=== PATIENT | female | born 1975 | race Caucasian/White ===

== ENCOUNTER 2017-03-29 20:45 | Outpatient (CLI) | payer OTHER | END 2017-03-29 20:46 | disposition critical access hospital (66) | LOC: EMS 20:45 | PROVIDERS: ATTEND Surgery | DX: R46.89 Other symptoms and signs involving appearance and behavior (principal) | CPT/HCPCS: A0425; A0429 ==

== ENCOUNTER 2017-03-29 21:04 | Emergency (ER) | payer OTHER ==
[2017-03-29 21:30] LABS: HCT - HEMATOCRIT 33.3 % (37.0-47.0); HGB - HEMOGLOBIN 10.4 g/dL (12.0-16.0); MEAN CORPUSCULAR HGB CONC 31.3 g/dL (32.0-36.0); MEAN CORPUSCULAR VOLUME 67.3 fL (81.0-99.0); MEAN PLATELET VOLUME 7.3 fL (7.9-10.8); RED BLOOD COUNT 4.94 10^6/uL (4.20-5.40); RED CELL DISTRIBUTION WIDTH 16.1 % (12.0-15.0); WHITE BLOOD COUNT 5.3 x10^3/uL (4.8-10.8)
[2017-03-29 21:44] LABS: ALBUMIN/GLOBULIN RATIO 1.8 (1.0-2.2); BILIRUBIN,TOTAL 1.4 mg/dL (0.2-1.0); BUN - BLOOD UREA NITROGEN 16 mg/dL (6-20); CALCIUM 9.2 mg/dL (8.5-10.3); CARBON DIOXIDE - CO2 26 mmol/L (21-32); CHLORIDE 100 mmol/L (101-111); CREATININE 0.7 mg/dL (0.4-1.0); GFR - MDRD 92 (>89); GLUCOSE 86 mg/dL (70-100); LIPASE 27 U/L (22-51); POTASSIUM 3.6 mmol/L (3.5-5.0); SALICYLATE < 6.0 mg/dL; SODIUM 134 mmol/L (135-145); TOTAL PROTEIN 7.1 g/dL (6.7-8.2)
[2017-03-29 21:45] LABS: BILIRUBIN,URINE NEGATIVE (NEGATIVE)
[2017-03-29 21:50] LABS: ACETAMINOPHEN < 10 ug/mL (10-30)
--- NOTE | 2017-03-29 23:59 | ED Physician Documentation ---
PD HPI MHE - Stated complaint Stated Complaint: MHE - Chief complaint Chief Complaint: MHE - History obtained from History obtained from: Patient - History of Present Illness Primary symptom: Psychosis, Anxiety Contributing factors: Family Similar symptoms before: Diagnosis (PTSD; ADD; Anxiety Disorder) - Additional information Additional information: The patient is a 42-year-old female who arrives via ambulance after her daughter called 911. Her daughter, who lives in [place], was talking to the patient by telephone, and became concerned about her safety when the patient described feeling overwhelmed and getting in verbal confrontations and making threats to her 15-year-old son. The patient admits to feeling overwhelmed since her is been overseas as an sheet metal contractor in [facility]. Her 15-year-old son is challenging for her, and "pushes the barriers." She also describes having insomnia. She is also concerned about parasites which she thinks have infested her home and her body. She reports seeing tapeworms in her stool. Her daughter states that the patient has had inspectors in the home to look for parasites. She sees a therapist regularly for ADD and PTSD. She has a remote psychiatric hospitalization in 2000 after a suicide attempt. Review of Systems Constitutional: denies: Fever, Weight Loss Ears: denies: Tinnitus/ringing Nose: denies: Congestion Throat: denies: Sore throat Cardiac: denies: Chest pain / pressure Respiratory: denies: Dyspnea, Cough GI: denies: Abdominal Pain, Nausea, Vomiting : denies: Dysuria Skin: denies: Rash Musculoskeletal: denies: Neck pain, Back pain Neurologic: denies: Focal weakness, Numbness, Headache Psychiatric: reports: Delusions (Obsessively concerned about parasites.), Anxiety, Insomnia. 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, Ovarian cysts : None HEENT: None Psych: Depression, Anxiety, Panic attacks, ADD/ADHD, Post traumatic stress disorder, Obsessive compulsive disorder, Eating disorder Musculoskeletal: Osteoarthritis, Fatigue Derm: None - Past Surgical History Past Surgical History: Yes General: Cholecystectomy, Appendectomy /BOXING MACHINE 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: section HEENT: Tonsil/Adenoidectomy - Present Medications Home Medications: Ambulatory Orders Medication Instructions Recorded Confirmed Dextroamphetamine/Amphetamine 60 mg PO DAILY 11/11/12 03/29/17 [Adderall 20 mg Tablet] - Allergies Allergies/Adverse Reactions: Allergies Allergy/AdvReac Type Severity Reaction Status Date / Time Penicillins Allergy Intermediate Rash Verified 05/01/16 10:54 - Social History Does the pt smoke?: No Smoking Status: Never smoker Does the pt drink ETOH?: No Does the pt have substance abuse?: Yes - Immunizations Immunizations are current?: No - POLST Patient has POLST: No PD ED PE NORMAL - Vitals Vital signs reviewed: Yes (normal) - General General: Alert and oriented X 3, Well developed/nourished - HEENT HEENT: Atraumatic, PERRL, EOMI, Pharynx benign, Other (Scattered open sores on her face consistent with picking.) - Neck Neck: Supple, no meningeal sign, No adenopathy - Cardiac Cardiac: RRR, No murmur - Respiratory Respiratory: No respiratory distress, Clear bilaterally - Abdomen Abdomen: Soft, Non tender - Back Back: No CVA TTP - Derm Derm: No rash - Extremities Extremities: No tenderness to palpate, Normal ROM s pain - Neuro Neuro: Alert and oriented X 3, No motor deficit, No sensory deficit, Normal speech PD ED PE EXPANDED - Psych Psych: Depressed, Anxious, Delusions ([place] obsessed with the possibility of parasites.). No: Suicidal, Homicidal Results - Vitals Vitals: Oxygen O2 Source Room air - Labs Labs: Microbiology 03/29/17 22:10 Campylobacter Antigen Assay - Final Stool Stool Culture - Final NO SALMONELLA, SHIGELLA, E. COLI 0157, AEROMONAS, EDWARDSIELLA, PLESIOMONAS, YERSINIA, OR VIBRIO ISOLATED. NO SHIGA TOXIN 1 OR 2 DETECTED. Laboratory Tests 03/29/17 03/29/17 03/29/17 21:15 21:25 21:25 WBC 5.3 RBC 4.94 Hgb 10.4 L Hct 33.3 L MCV 67.3 L MCH 21.0 L MCHC 31.3 L RDW 16.1 H Plt Count 231 MPV 7.3 L Sodium 134 L Potassium 3.6 Chloride 100 L Carbon Dioxide 26 Anion Gap 8.0 BUN 16 Creatinine 0.7 Estimated GFR (MDRD) 92 Glucose 86 Calcium 9.2 Total Bilirubin 1.4 H AST 19 ALT 17 Alkaline Phosphatase 36 L Total Protein 7.1 Albumin 4.6 Globulin 2.5 Albumin/Globulin Ratio 1.8 Lipase 27 Urine Color YELLOW Urine Clarity CLEAR Urine pH 6.0 Ur Specific [place] 1.025 Urine Protein NEGATIVE Urine Glucose (UA) NEGATIVE Urine Ketones NEGATIVE Urine Occult Blood NEGATIVE Urine Nitrite NEGATIVE Urine Bilirubin NEGATIVE Urine Urobilinogen 0.2 (NORMAL) Ur Leukocyte Esterase NEGATIVE Salicylates < 6.0 Urine Opiates Screen NEGATIVE Ur Oxycodone Screen NEGATIVE Urine Methadone Screen NEGATIVE Ur Propoxyphene Screen NEGATIVE Acetaminophen < 10 L Ur Barbiturates Screen NEGATIVE Ur Tricyclics Screen NEGATIVE Ur Phencyclidine Scrn NEGATIVE Ur Amphetamine Screen POSITIVE H U Methamphetamines Scrn NEGATIVE U Benzodiazepines Scrn NEGATIVE Urine Cocaine Screen NEGATIVE U Cannabinoids Screen NEGATIVE Ethyl Alcohol < 5.0 PD MEDICAL DECISION MAKING - ED course Complexity details: reviewed results, re-evaluated patient, considered differential, d/w patient, d/w family ED course: The patient's presentation is significant for exacerbation of anxiety with a delusional component. There is no clinical evidence to suggest significant risk of harm to herself or to others. In telephone discussion with the patient' s daughter I learned that she has been overly obsessed with parasites for months if not years. I suspect her sleep deprivation is exacerbating her symptoms. CBC, chemistry panel, and urinalysis are unremarkable. Urine tox screen is positive for amphetamines, consistent with prescription Adderall. A stool sample was collected and sent to the lab for evaluation. The patient was observed in the emergency department for several hours, during which time she managed to fall asleep. She felt much better rested after a long nap. She has an appointment scheduled with her therapist in 2 days. I discussed with her the importance of follow-up, as well as potentially worrisome signs or symptoms that should prompt reevaluation in the emergency department. I contacted her daughter again with regard to discharge. No other concerns were raised. Departure - Departure Disposition: 01 Home, Self Care Clinical Impression: Affective psychosis, Anxiety Condition: Stable Instructions: ED Stress React Follow-Up: HERMANN Brown [Provider Group] Comments: Continue your currently prescribed medications. Follow up with your psychiatrist in 2 days as scheduled. Minimize stimulant drinks such as coffee, alok, or alcohol. Return to the emergency department if you develop increasing anxiety, or otherwise worsening symptoms. Discharge Date/Time: 03/30/17 00:02
[2017-03-30 00:03] VITALS: BP 111/63
== END 2017-03-30 00:02 | disposition home or self-care (01) ==
LOC: EDUNIT# → ED 21:04
DX: F39 Unspecified mood [affective] disorder (principal); F41.9 Anxiety disorder, unspecified; F43.10 Post-traumatic stress disorder, unspecified
CPT/HCPCS: 36415; 80053; 80306; 80307; 80320; 80329; 81003; 83690; 87045; 87046; 99283

== ENCOUNTER 2018-10-14 16:36 | Emergency (ER) | payer OTHER ==
[2018-10-14 17:37] LABS: BASOPHILS % (AUTO) 0.9 %; EOSINOPHILS % (AUTO) 0.3 %; HGB - HEMOGLOBIN 10.4 g/dL (12.0-16.0); LYMPHOCYTES # (AUTO) 1.6 10^3/uL (1.5-3.5); LYMPHOCYTES % (AUTO) 28.6 %; MEAN CORPUSCULAR HEMOGLOBIN 21.8 pg (27.0-31.0); MEAN CORPUSCULAR VOLUME 70.4 fL (81.0-99.0); MEAN PLATELET VOLUME 7.9 fL (7.9-10.8); MONOCYTES # (AUTO) 0.4 10^3/uL (0.0-1.0); MONOCYTES % (AUTO) 6.7 %; NEUTROPHILS # (AUTO) 3.6 10^3/uL (1.5-6.6); NEUTROPHILS % (AUTO) 63.5 %; PLT - PLATELET COUNT 247 10^3/uL (130-450); RED BLOOD COUNT 4.75 10^6/uL (4.20-5.40); RED CELL DISTRIBUTION WIDTH 15.9 % (12.0-15.0); WHITE BLOOD COUNT 5.7 x10^3/uL (4.8-10.8)
[2018-10-14 17:39] LABS: BILIRUBIN,URINE NEGATIVE (NEGATIVE); GLUCOSE, URINE (UA) NEGATIVE (NEGATIVE); KETONES,URINE (UA) NEGATIVE (NEGATIVE); LEUKOCYTE ESTERASE, URINE NEGATIVE (NEGATIVE); NITRITE,URINE NEGATIVE (NEGATIVE); OCCULT BLOOD,URINE NEGATIVE (NEGATIVE); PROTEIN,URINE NEGATIVE (NEGATIVE); UROBILINOGEN,URINE 0.2 (NORMAL) E.U./dL (NORMAL)
[2018-10-14 17:42] LABS: CLARITY,URINE CLEAR (CLEAR); HCG UR QUAL NEGATIVE
[2018-10-14 17:46] LABS: ALBUMIN 4.1 g/dL (3.2-5.5); ALBUMIN/GLOBULIN RATIO 1.6 (1.0-2.2); BILIRUBIN,TOTAL 1.4 mg/dL (0.2-1.0); CALCIUM 8.8 mg/dL (8.5-10.3); CREATININE 0.6 mg/dL (0.4-1.0); TOTAL PROTEIN 6.7 g/dL (6.7-8.2)
[2018-10-14] MEDS ORDERED: KETOROLAC 60 MG/2 ML VIAL IM STA (20:07)
[2018-10-14] MEDS ORDERED: DEXAMETHASONE 10 MG/ML VIAL PO STA (20:07)
[2018-10-14] MEDS ORDERED: CHERRY SYRUP 10 ML UDC PO ONE (20:07)
--- NOTE | 2018-10-14 20:12 | ED Physician Documentation ---
History of Present Illness - Stated complaint Stated Complaint: LRQ /FLU SYMPTOMS - Chief complaint Chief Complaint: Abd Pain - History obtained from History obtained from: Patient - History of Present Illness Pain level max: 8 Pain level now: 8 Improved by: nothing Worsened by: nothing - Additonal information Additional information: 43-year-old female with pelvic pain for the past 2 years, worsening over the past several weeks. Became suddenly worse today. LMP was 2 weeks ago. She states she has had multiple work-ups with no cause found. No changes in sexual partners. Complains of white thick vaginal discharge. She also complains of a itchy rash over her entire body for the past several months. No cause found. Review of Systems Constitutional: denies: Fever, Chills Throat: denies: Sore throat Respiratory: denies: Cough GI: denies: Nausea, Vomiting : reports: Other (states no changes in sexual partners). 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, Ovarian cysts : None HEENT: None Psych: Depression, Anxiety, Panic attacks, ADD/ADHD, Post traumatic stress disorder, Obsessive compulsive disorder, Eating disorder Musculoskeletal: Osteoarthritis, Fatigue Derm: None - Past Surgical History Past Surgical History: Yes General: Cholecystectomy, Appendectomy /CARPENTER REPAIRER: section HEENT: Tonsil/Adenoidectomy - Present Medications Home Medications: Ambulatory Orders Medication Instructions Recorded Confirmed Dextroamphetamine/Amphetamine 60 mg PO DAILY 11/11/12 10/14/18 [Adderall 20 mg Tablet] Hydrocodone/Acetaminophen 1 - 2 each PO Q6H PRN #14 tablet 10/14/18 [Hydrocodon-Acetaminophen 5-325] Metronidazole [Flagyl] 500 mg PO BID #14 tablet 10/14/18 predniSONE [Prednisone] 40 mg PO DAILY #10 tablet 10/14/18 - Allergies Allergies/Adverse Reactions: Allergies Allergy/AdvReac Type Severity Reaction Status Date / Time Penicillins Allergy Intermediate Rash Verified 10/14/18 16:45 - Social History Does the pt smoke?: No Smoking Status: Never smoker Does the pt drink ETOH?: Yes Does the pt have substance abuse?: No - Immunizations Immunizations are current?: No - POLST Patient has POLST: No PD ED PE NORMAL - Vitals Vital signs reviewed: Yes - General General: Alert and oriented X 3, No acute distress - HEENT HEENT: Moist mucous membranes, Pharynx benign - Neck Neck: Supple, no meningeal sign - Cardiac Cardiac: RRR, No murmur, Strong equal pulses - Respiratory Respiratory: No respiratory distress, Clear bilaterally - Abdomen Abdomen: Soft, Non distended, Other (Tender to palpation right low pelvic. No peritoneal signs) - Female Female : Densitometer Reader present, Other (Normal external exam. There appears to be agitation to the cervix with mild swelling. Slight discharge. No lesions. No cervical motion tenderness or adnexal fullness.) - Back Back: No CVA TTP, No spinal TTP - Derm Derm: Warm and dry, Other (Few small scattered erythematous patches, approx imately 1 cm in diameter.) - Extremities Extremities: No edema, No calf tenderness / cord - Neuro Neuro: Alert and oriented X 3 - Psych Psych: Normal mood, Normal affect Results - Vitals Vitals: Vital Signs - 24 hr 10/14/18 10/14/18 16:43 22:18 Temperature 36.9 C 37 C Heart Rate 85 64 Respiratory 20 16 Rate Blood Pressure 133/87 H 127/86 H O2 Saturation 100 98 Oxygen O2 Source Room air - Labs Labs: Microbiology 10/14/18 21:50 MARILIA Preparation - Final Other - Vaginal 10/14/18 21:50 Wet Prep - Final Vaginal Laboratory Tests 10/14/18 10/14/18 10/14/18 16:55 17:25 17:25 WBC 5.7 RBC 4.75 Hgb 10.4 L Hct 33.4 L MCV 70.4 L MCH 21.8 L MCHC 31.0 L RDW 15.9 H Plt Count 247 MPV 7.9 Neut # (Auto) 3.6 Lymph # (Auto) 1.6 [place] # (Auto) 0.4 Eos # (Auto) 0.0 Baso # (Auto) 0.0 Absolute Nucleated RBC 0.01 Nucleated RBC % 0.2 Sodium 138 Potassium 4.0 Chloride 103 Carbon Dioxide 25 Anion Gap 10.0 BUN 15 Creatinine 0.6 Estimated GFR (MDRD) 109 Glucose 98 Calcium 8.8 Total Bilirubin 1.4 H AST 15 ALT 14 Alkaline Phosphatase 43 Total Protein 6.7 Albumin 4.1 Globulin 2.6 Albumin/Globulin Ratio 1.6 Lipase 23 Urine Color YELLOW Urine Clarity CLEAR Urine pH 5.0 Ur Specific [place] 1.025 Urine Protein NEGATIVE Urine Glucose (UA) NEGATIVE Urine Ketones NEGATIVE Urine Occult Blood NEGATIVE Urine Nitrite NEGATIVE Urine Bilirubin NEGATIVE Urine Urobilinogen 0.2 (NORMAL) Ur Leukocyte Esterase NEGATIVE Ur Microscopic Review NOT INDICATED Urine Culture Comments NOT INDICATED Urine HCG, Qual NEGATIVE - Rads (name of study) Pelvic ultrasound Radiology: Prelim report reviewed, EMP read contemporaneously, See rad report (Normal pelvic ultrasound) PD MEDICAL DECISION MAKING - ED course Complexity details: reviewed results, re-evaluated patient, considered differential, d/w patient ED course: 43-year-old female with pelvic pain of unclear etiology. This been ongoing for several years, no cause found. Clinically she appears to have a cervicitis, no STD risk factors however. The wet bigg had become dry by the time it reached the lab, therefore nothing was seen on the swab. We will not recollect this. Instead we will treat with metronidazole and see if this improves her symptoms. Recommend that she follow-up with gynecology for further exam. Gonorrhea and Chlamydia testing also sent. Unclear etiology of the rash. Will trial on a short course of steroids and have her follow-up with dermatology. Patient counseled regarding signs and symptoms for which I believe and urgent re- evaluation would be necessary. Patient with good understanding of and agreement to plan and is comfortable going home at this time This document was made in part using voice recognition software. While efforts are made to proofread this document, sound alike and grammatical errors may occur. Departure - Departure Disposition: 01 Home, Self Care Clinical Impression: Pelvic pain, Bacterial vaginitis, Cervicitis, Dermatitis Condition: Good Instructions: ED Pelvic Pain UKO, ED Vaginosis Bacterial Follow-Up: your,doctor in 1 week [Other] Prescriptions: Hydrocodone/Acetaminophen [Hydrocodon-Acetaminophen 5-325] 1 - 2 each PO Q6H PRN #14 tablet PRN Reason: pain Metronidazole [Flagyl] 500 mg PO BID #14 tablet predniSONE [Prednisone] 40 mg PO DAILY #10 tablet Comments: Return if you worsen. Take the medications until gone. Follow up with your doctor for further care. Do not drink alcohol or drive while on narcotic pain medicine. Note that many narcotic pain relievers also contain tylenol/acetaminophen. Please ensure that your total dose of acetaminophen from all sources does not exceed 3 grams (3000mg) per day. You may constipated on this medication, take a stool softener such as "Colace" twice a day while you are on it. Also recommend a lvzd-ldc-itpnotn laxative such as senna or MiraLAX any day that you do not have a bowel movement. If you received narcotic pain medication in the emergency department, do not drive or operate machinery for the next 24 hours. Discharge Date/Time: 10/14/18 22:31
--- NOTE | 2018-10-14 21:51 | Ultrasound Report ---
Reason: R pelvic pain Procedure Date: 10/14/2018 Accession Number: [id number] / [id number] Procedure: US - Pelvic w/Transvag+Doppler Comp CPT Code: FULL RESULT: EXAM: PELVIC ULTRASOUND EXAM DATE: 10/14/2018 09:03 PM. CLINICAL HISTORY: Right lower quadrant pain, status post appendectomy. COMPARISON: None. TECHNIQUE: Realtime transabdominal pelvic scan performed to identify the uterus and adnexa and as an overview of other pelvic structures, followed by transvaginal scan to provide greater detail of the uterus and adnexa, with static image documentation. FINDINGS: Uterus: 9 x 4.4 x 6 cm, volume 124.3 cc. Anteverted position. Normal overall size and echotexture. Masses: None. Endometrium: 14.8 mm. Normal. Cervix: Unremarkable. Right Ovary: 3.2 x 1.1 x 1.4 cm, volume 2.6 cc. Normal echotexture and blood flow. Left Ovary: 3.5 x 2 x 3.2 cm, volume 11.7 cc. Normal echotexture and blood flow. Free Fluid: None. Other: None. IMPRESSION: Normal pelvic ultrasound. RADIA
[2018-10-14 22:20] VITALS: BP 127/86
[2018-10-14] MEDS ORDERED: metroNIDAZOLE 250 MG TABLET PO STA (22:20)
== END 2018-10-14 22:31 | disposition home or self-care (01) ==
LOC: ED 16:36
DX: N72 Inflammatory disease of cervix uteri (principal); N76.0 Acute vaginitis; B96.89 Other specified bacterial agents as the cause of diseases classified elsewhere; R10.2 Pelvic and perineal pain; L30.9 Dermatitis, unspecified
CPT/HCPCS: 36415; 76830; 76856; 80053; 81003; 81025; 83690; 85025; 87210; 87220; 87491; 87591; 93975; 96372; 99283; 99284; A9270; 81001; 87086

== ENCOUNTER 2019-06-08 05:34 | Outpatient (CLI) | payer OTHER | END 2019-06-08 05:35 | disposition EMS.NT | LOC: EMS 05:34 | PROVIDERS: ATTEND Surgery | DX: R25.1 Tremor, unspecified (principal) ==

== ENCOUNTER 2019-11-23 13:53 | Emergency (ER) | payer OTHER ==
[2019-11-23] MEDS ORDERED: KETOROLAC 60 MG/2 ML VIAL IM STA (14:22)
[2019-11-23] MEDS ORDERED: PROMETHAZINE 25 MG/1 ML VIAL IM STA (14:23)
--- NOTE | 2019-11-23 14:26 | ED Physician Documentation ---
History of Present Illness - Stated complaint Stated Complaint: RODRIGUEZ/SORE THROAT - Chief complaint Chief Complaint: Neuro - History obtained from History obtained from: Patient - History of Present Illness Timing: Prior to arrival Pain level max: 8 Pain level now: 8 - Additonal information Additional information: 44-year-old female presents to the emergency department with chief complaint of headache for about 3 days. She reports a global cephalgia that is light sensitive. She feels that it is making her anxiety worse. She has tried extra strength Tylenol as well as [id number]-[id number] migraine remedies without relief. She states that she has developed a history of headaches over the last year and this is similar to others in the past. Typically sitting in a dark room will make her better. Headache was not sudden onset. She has had no fevers. This is not worst of life. She has no neck pain or nuchal rigidity. She also reports that she has been having right lower quadrant abdominal pain as well as right upper quadrant abdominal pain with some associated nausea. Occasionally she reports dysuria but not at present. She denies any fevers.Patient is also reporting that she has had a cough for the last week sometimes blood-tinged sputum. She also has associated sore throat. No lymphadenopathy in the neck and no tonsillar exudate. In the room patient is tearful and crying. States that her psychiatrist asked her to come to the emergency department for evaluation of the headache. Patient states that she would like to be tested for Lyme disease. She denies any rash joint pain. Review of Systems Constitutional: denies: Fever, Chills, Myalgias, Fatigue Eyes: reports: Photophobia. denies: Loss of vision, Decreased vision, Discharge, Irritation Ears: reports: Reviewed and negative Nose: reports: Congestion. denies: Rhinorrhea / runny nose Respiratory: reports: Cough, Hemoptysis. denies: Dyspnea, Wheezing GI: reports: Abdominal Pain, Nausea. denies: Abdominal Swelling, Vomiting, Constipation, Hematemesis : reports: Dysuria Skin: denies: Rash, Lesions Musculoskeletal: denies: Neck pain, Back pain, Joint pain, Extremity swelling Neurologic: reports: Headache. denies: Generalized weakness, Focal weakness, D ifficulty speaking, Near syncope, Syncope, Seizure, Confused, Altered mental status Psychiatric: reports: Depressed, Anxiety. 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, Ovarian cysts : None HEENT: None Psych: Depression, Anxiety, Panic attacks, ADD/ADHD, Post traumatic stress disorder, Obsessive compulsive disorder, Eating disorder Musculoskeletal: Osteoarthritis, Fatigue Derm: None - Past Surgical History Past Surgical History: Yes General: Cholecystectomy, Appendectomy /STEMHOLE BORER AND TOPPER: section HEENT: Tonsil/Adenoidectomy - Present Medications Home Medications: Ambulatory Orders Medication Instructions Recorded Confirmed Dextroamphetamine/Amphetamine 60 mg PO DAILY 11/11/12 11/23/19 [Adderall 20 mg Tablet] Ibuprofen [Ibu] 600 mg PO Q6H PRN #20 tablet 11/23/19 Multivitamin [Multiple Vitamins] 1 each PO DAILY 11/23/19 11/23/19 - Allergies Allergies/Adverse Reactions: Allergies Allergy/AdvReac Type Severity Reaction Status Date / Time Penicillins Allergy Intermediate Rash Verified 11/23/19 14:02 - Social History Does the pt smoke?: No Smoking Status: Never smoker Does the pt drink ETOH?: Yes Does the pt have substance abuse?: No - Immunizations Immunizations are current?: No - POLST Patient has POLST: No PD ED PE NORMAL - General General: Alert and oriented X 3, No acute distress, Well developed/nourished - HEENT HEENT: Atraumatic, EOMI, Other (normal appearanc eposterior oropharynx without exudate) - Neck Neck: Supple, no meningeal sign, No adenopathy - Cardiac Cardiac: RRR, No murmur - Respiratory Respiratory: No respiratory distress, Clear bilaterally - Abdomen Abdomen: Normal bowel sounds - Neuro Neuro: Alert and oriented X 3, sow farm technician 2-12 intact, No motor deficit, No sensory deficit Eye Opening: Spontaneous Motor: Obeys Commands Verbal: Oriented GCS Score: 15 - Psych Psych: Other (anxious and tearful. NO SI/HI) Results - Vitals Vitals: Vital Signs - 24 hr 11/23/19 11/23/19 13:56 16:11 Temperature 98.5 C H 37.2 C Heart Rate 100 85 Respiratory 14 16 Rate Blood Pressure 133/87 H 122/85 H O2 Saturation 100 100 Oxygen O2 Source Room air - Labs Labs: Laboratory Tests 11/23/19 11/23/19 11/23/19 13:15 14:33 14:33 WBC 8.4 RBC 4.68 Hgb 10.3 L Hct 32.1 L MCV 68.6 L MCH 22.0 L MCHC 32.1 RDW 14.8 Plt Count 236 MPV 9.9 Neut # (Auto) 6.4 Lymph # (Auto) 1.4 L [place] # (Auto) 0.6 Eos # (Auto) 0.0 Baso # (Auto) 0.0 Absolute Nucleated RBC 0.00 Nucleated RBC % 0.0 Sodium 137 Potassium 3.5 Chloride 106 Carbon Dioxide 24 Anion Gap 7.0 BUN 20 Creatinine 0.6 Estimated GFR (MDRD) 109 Glucose 97 Calcium 8.8 Total Bilirubin 1.2 H AST 15 ALT 13 Alkaline Phosphatase 38 L Total Protein 6.9 Albumin 4.3 Globulin 2.6 Albumin/Globulin Ratio 1.7 Lipase 33 Urine Color YELLOW Urine Clarity CLEAR Urine pH 5.5 Ur Specific [place] >=1.030 H Urine Protein NEGATIVE Urine Glucose (UA) NEGATIVE Urine Ketones NEGATIVE Urine Occult Blood TRACE-INTA Urine Nitrite NEGATIVE Urine Bilirubin NEGATIVE Urine Urobilinogen 0.2 (NORMAL) Ur Leukocyte Esterase NEGATIVE Ur Microscopic Review NOT INDICATED Urine Culture Comments NOT INDICATED Urine HCG, Qual NEGATIVE - Rads (name of study) CXR Radiology: Final report received (no acute cardiopulmonary process) PD MEDICAL DECISION MAKING - ED course Complexity details: reviewed results, re-evaluated patient, d/w patient ED course: 44-year-old female presents to the emergency department with a chief complaint of 3 days headache. Patient has associated light sensitivity and nausea. Headache was not sudden onset and is similar to her is in the past. Patient believes that she is having migraines.-While in the emergency department patient was given Phenergan and Toradol initially with some relief of the pain but it did not fully juanjose. Therefore proceeded to give her a cocktail of Decadron Compazine Benadryl and IV fluids. After careful of's observation in the emergency department her headache had improved though not fully abatedGiven history of recurrent headaches and similar in past I do not believe that this represents acute mass or infectious etiology. Not sudden onset and not worst of life doubt subarachnoid hemorrhage. Patient also reported cough for the last week and hemoptysis. However her chest x-ray was unrevealing. Pulmonary auscultation is normal no hypoxia. Patient is quite anxious and I do have concern that some of that is driving this emergency department visit and her psychiatrist advised her to come to the ED I have advised very close follow-up with her primary care provider. I have advised patient to keep a headache diary in order to better ascertain the underlying etiology takes. We discussed that she may return at any time if her headaches are worsening. Departure - Departure Disposition: 01 Home, Self Care Clinical Impression: Cough Headache Qualifiers: Headache type: hemicrania continua Qualified Code(s): G44.51 - Hemicrania continua Condition: Stable Record reviewed to determine appropriate education?: Yes Instructions: ED Headache Migraine Follow-Up: Isabela Samuels ARNP [Primary Care Provider] - Prescriptions: Ibuprofen [Ibu] 600 mg PO Q6H PRN #20 tablet PRN Reason: Pain Comments: Joyce I hope that you feel better soon. Some of the medications given to you in the emergency department today should prevent the headache from returning once it goes away fully. Based on your history of recurrent headaches and your light sensitivity I think you do likely have migraines. Please drink a lot of fluid at home and attempt to get good rest often sleep will break the headache cycle. Because her headaches are increasing in frequency I would advise you to keep a headache diary that records when the headaches occur how long they last what you have eaten in the last 24 hours. If the headache is worsening or you have fevers please return to the emergency department for another evaluation thank you
[2019-11-23 14:39] LABS: BASOPHILS % (AUTO) 0.5 %; HGB - HEMOGLOBIN 10.3 g/dL (12.0-16.0); LYMPHOCYTES # (AUTO) 1.4 10^3/uL (1.5-3.5); LYMPHOCYTES % (AUTO) 16.3 %; MEAN CORPUSCULAR HGB CONC 32.1 g/dL (32.0-36.0); MEAN CORPUSCULAR VOLUME 68.6 fL (81.0-99.0); MEAN PLATELET VOLUME 9.9 fL (7.9-10.8); MONOCYTES # (AUTO) 0.6 10^3/uL (0.0-1.0); MONOCYTES % (AUTO) 6.8 %; NEUTROPHILS # (AUTO) 6.4 10^3/uL (1.5-6.6); PLT - PLATELET COUNT 236 10^3/uL (130-450); RED BLOOD COUNT 4.68 10^6/uL (4.20-5.40); RED CELL DISTRIBUTION WIDTH 14.8 % (12.0-15.0); WHITE BLOOD COUNT 8.4 x10^3/uL (4.8-10.8)
[2019-11-23 14:56] LABS: ALBUMIN 4.3 g/dL (3.2-5.5); ALBUMIN/GLOBULIN RATIO 1.7 (1.0-2.2); BILIRUBIN,TOTAL 1.2 mg/dL (0.2-1.0); CALCIUM 8.8 mg/dL (8.5-10.3); CREATININE 0.6 mg/dL (0.4-1.0); TOTAL PROTEIN 6.9 g/dL (6.7-8.2)
--- NOTE | 2019-11-23 15:01 | XRAY Report ---
Reason: cough Procedure Date: 11/23/2019 Accession Number: [id number] / [id number] Procedure: XR - Chest 2 View X-Ray CPT Code: 65503 Final Report FULL RESULT: PROCEDURE: Chest 2 View X-Ray INDICATIONS: cough TECHNIQUE: 2 view(s) of the chest. COMPARISON: None. FINDINGS: Surgical changes and devices: None. Lungs and pleura: No pleural effusions or pneumothorax. Lungs are clear. Mediastinum: Mediastinal contours are normal. Heart size is normal. Bones and chest wall: No suspicious bony abnormalities. Soft tissues appear unremarkable. IMPRESSION: No acute cardiopulmonary disease process. Reviewed by: Susy Sweeney MD, PhD on 11/23/2019 3:00 PM PDT Approved by: Susy Sweeney MD, PhD on 11/23/2019 3:00 PM PDT Station ID: [id number]
[2019-11-23 15:25] LABS: BILIRUBIN,URINE NEGATIVE (NEGATIVE); GLUCOSE, URINE (UA) NEGATIVE (NEGATIVE); KETONES,URINE (UA) NEGATIVE (NEGATIVE); LEUKOCYTE ESTERASE, URINE NEGATIVE (NEGATIVE); NITRITE,URINE NEGATIVE (NEGATIVE); OCCULT BLOOD,URINE TRACE-INTA (NEGATIVE); PH,URINE 5.5 PH (5.0-7.5); PROTEIN,URINE NEGATIVE (NEGATIVE); UROBILINOGEN,URINE 0.2 (NORMAL) E.U./dL (NORMAL)
[2019-11-23 15:28] LABS: CLARITY,URINE CLEAR (CLEAR); HCG UR QUAL NEGATIVE
[2019-11-23] MEDS ORDERED: SODIUM CHLORIDE 0.9% 1,000 ML IV STA (15:46)
[2019-11-23] MEDS ORDERED: DEXAMETHASONE 10 MG/ML VIAL PO STA (15:46)
[2019-11-23] MEDS ORDERED: diphenhydrAMINE INJ 50 MG/ML VIAL IVP STA (15:46)
[2019-11-23] MEDS ORDERED: CHERRY SYRUP 10 ML UDC PO ONE (15:46)
[2019-11-23] MEDS ORDERED: PROCHLORPERAZINE 10 MG/2 ML VIAL IVP STA (15:47)
[2019-11-23 17:08] VITALS: BP 112/79
== END 2019-11-23 17:25 | disposition home or self-care (01) ==
LOC: ED 13:53
DX: G44.51 Hemicrania continua (principal); R05 Cough; F41.9 Anxiety disorder, unspecified
CPT/HCPCS: 36415; 71046; 80053; 81003; 81025; 83690; 85025; 96361; 96372; 96374; 99284; A9270; J1200; 81001; 87086

== ENCOUNTER 2019-11-25 16:05 | Outpatient (CLI) | payer OTHER | END 2019-11-25 16:06 | disposition short-term general hospital (02) | LOC: EMS 16:05 | PROVIDERS: ATTEND Surgery | DX: R45.851 Suicidal ideations (principal) | CPT/HCPCS: A0425; A0429 ==

== ENCOUNTER 2020-01-25 08:27 | Outpatient (CLI) | payer OTHER | END 2020-01-25 08:28 | disposition critical access hospital (66) | LOC: EMS 08:27 | PROVIDERS: ATTEND Surgery | DX: T39.1X2A Poisoning by 4-Aminophenol derivatives, intentional self-harm, initial encounter (principal); R53.83 Other fatigue; R10.9 Unspecified abdominal pain; R11.2 Nausea with vomiting, unspecified | CPT/HCPCS: A0425; A0427 ==

== ENCOUNTER 2020-01-25 08:46 | Inpatient (IN) | payer OTHER ==
--- NOTE | 2020-01-25 09:02 | ED Physician Documentation ---
PD HPI OVERDOSE - Stated complaint Stated Complaint: OD - History obtained from History obtained from: Patient - History of Present Illness Timing - onset: Last night (She is not sure the exact time but states she was feeling depressed and had some alcohol and then took unknown quantity of Tylenol PM and NyQuil. She states it was before bedtime; was still dark out. She does not remember evening. A friend checked on her this morning and no response, called EMS) Subtance(s) ingested: Multiple (Tylenol PM and Dayquil - empty bottles found, but not new bottles, so unknown exact number. Initial meds were 50 tabs.) Associated symptoms: Altered mental status Contributing factors: Depresssed, Suicidal Similar symptoms before: Diagnosis (history of depression but no suicide attempts, per pt.) Review of Systems Unable to obtain: AMS (somnolent) Eyes: reports: Decreased vision (states some blurred vision (and dry mouth).) Nose: denies: Rhinorrhea / runny nose, Congestion Throat: denies: Sore throat Respiratory: denies: Cough GI: reports: Vomiting (just couple of times last night) Neurologic: reports: Generalized weakness, Altered mental status (somnolent after overdose and still very sleepy and lightheaded this morning.) Psychiatric: reports: Depressed PD PAST MEDICAL HISTORY - Past Medical History Cardiovascular: None Respiratory: None Neuro: None Endocrine/Autoimmune: None GI: Hiatal hernia, Cholelithiasis 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: Endometriosis, Ovarian cysts : None HEENT: None Psych: Depression, Anxiety, Panic attacks, ADD/ADHD, Post traumatic stress disorder, Obsessive compulsive disorder, Eating disorder Musculoskeletal: Osteoarthritis, Fatigue Derm: None - Past Surgical History Past Surgical History: Yes General: Cholecystectomy, Appendectomy /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: section HEENT: Tonsil/Adenoidectomy - Present Medications Home Medications: Ambulatory Orders Medication Instructions Recorded Confirmed Dextroamphetamine/Amphetamine 40 mg PO DAILY 11/11/12 01/25/20 [Adderall 20 mg Tablet] Dextroamphetamine/Amphetamine 20 mg PO .@ NOON 01/25/20 01/25/20 [Dextroamp-Amphetamin 20 mg Tab] - Allergies Allergies/Adverse Reactions: Allergies Allergy/AdvReac Type Severity Reaction Status Date / Time Penicillins Allergy Intermediate Rash Verified 01/25/20 09:12 - Social History Does the pt smoke?: No Smoking Status: Never smoker Does the pt drink ETOH?: Yes Does the pt have substance abuse?: No - Immunizations Immunizations are current?: No - POLST Patient has POLST: No PD ED PE NORMAL - Vitals Vital signs reviewed: Yes - General General: Well developed/nourished. No: Alert and oriented X 3 (sleepy but rousable) - HEENT HEENT: Pharynx benign. No: Moist mucous membranes - Neck Neck: Supple, no meningeal sign, No adenopathy - Cardiac Cardiac: RRR (not tachycardic), No murmur - Respiratory Respiratory: Clear bilaterally - Abdomen Abdomen: Soft, Non tender, Non distended. No: Normal bowel sounds (decreased) - Derm Derm: Normal color - Extremities Extremities: Normal ROM s pain, No edema, No calf tenderness / cord - Neuro Neuro: Alert and oriented X 3 (sleepy and needs voice or tactile to answer questions, but does answer appropriately), No motor deficit, No sensory deficit Results - Vitals Vitals: Vital Signs - 24 hr 01/25/20 01/25/20 01/25/20 08:54 09:27 09:55 Temperature 36.4 C L Heart Rate 79 75 78 Respiratory 17 19 17 Rate Blood Pressure 104/71 107/69 101/71 O2 Saturation 99 99 100 Oxygen O2 Source Room air - EKG (time done) 09:51 Rate: Rate (enter#) (78) Rhythm: NSR Intervals: Prolonged QT Ischemia: Normal ST segments. No: ST elevation c/w ischemia, ST depression Compare to prior EKG: Old EKG unavailable - Labs Labs: Laboratory Tests 01/25/20 01/25/20 01/25/20 09:26 09:26 09:26 WBC 3.0 L RBC 4.35 Hgb 9.6 L Hct 29.7 L MCV 68.3 L MCH 22.1 L MCHC 32.3 RDW 15.9 H Plt Count 261 MPV 10.8 Neut # (Auto) 2.2 Lymph # (Auto) 0.5 L Ceiba # (Auto) 0.2 Eos # (Auto) 0.0 Baso # (Auto) 0.0 Absolute Nucleated RBC 0.00 Nucleated RBC % 0.0 Manual Slide Review Indicated Platelet Estimate NORMAL (130-450,000) Platelet Morphology NORMAL APPEARANCE RBC Morph Micro Appear 1+ TARGET CELLS Sodium 143 Potassium 3.5 Chloride 109 Carbon Dioxide 23 Anion Gap 11.0 BUN 11 Creatinine 0.6 Estimated GFR (MDRD) 108 Glucose 115 H Calcium 7.9 L Magnesium Total Bilirubin 0.6 AST 38 ALT 31 Alkaline Phosphatase 36 L Total Protein 6.4 L Albumin 4.0 Globulin 2.4 Albumin/Globulin Ratio 1.7 Lipase 23 TSH 1.63 Salicylates < 6.0 Acetaminophen 157 H* Ethyl Alcohol 73.9 01/25/20 09:26 WBC RBC Hgb Hct MCV MCH MCHC RDW Plt Count MPV Neut # (Auto) Lymph # (Auto) Ceiba # (Auto) Eos # (Auto) Baso # (Auto) Absolute Nucleated RBC Nucleated RBC % Manual Slide Review Platelet Estimate Platelet Morphology RBC Morph Micro Appear Sodium Potassium Chloride Carbon Dioxide Anion Gap BUN Creatinine Estimated GFR (MDRD) Glucose Calcium Magnesium 1.9 Total Bilirubin AST ALT Alkaline Phosphatase Total Protein Albumin Globulin Albumin/Globulin Ratio Lipase TSH Salicylates Acetaminophen Ethyl Alcohol PD MEDICAL DECISION MAKING - ED course Complexity details: reviewed results (Presuming a timing of likely around 11 PM, her Tylenol level is high enough to be injurious to her liver and needs acetylcysteine dosing.), re-evaluated patient, considered differential (She had a unknown amount but largely lower likely large number of Tylenol containing med ications. Will check labs for that. Otherwise not having significant anticholinergic effect from the Benadryl), d/w patient Departure - Departure Disposition: 66 [facility] DC/Xfer Clinical Impression: Depressed affect, Suicidal ideation Intentional acetaminophen overdose Qualifiers: Encounter type: initial encounter Qualified Code(s): T39.1X2A - Poisoning by 4- Aminophenol derivatives, intentional self-harm, initial encounter Tylenol overdose Qualifiers: Encounter type: initial encounter Injury intent: intentional self-harm Qualified Code(s): T39.1X2A - Poisoning by 4-Aminophenol derivatives, intentional self-harm, initial encounter Condition: Stable Record reviewed to determine appropriate education?: Yes Discharge Date/Time: 01/25/20 11:25
[2020-01-25] MEDS ORDERED: SODIUM CHLORIDE 0.9% 1,000 ML IV STA ×2 (09:15→10:21)
[2020-01-25 09:32] LABS: EOSINOPHILS % (AUTO) 0.3 %; HGB - HEMOGLOBIN 9.6 g/dL (12.0-16.0); LYMPHOCYTES # (AUTO) 0.5 10^3/uL (1.5-3.5); LYMPHOCYTES % (AUTO) 17.4 %; MEAN CORPUSCULAR HEMOGLOBIN 22.1 pg (27.0-31.0); MEAN CORPUSCULAR HGB CONC 32.3 g/dL (32.0-36.0); MEAN CORPUSCULAR VOLUME 68.3 fL (81.0-99.0); MEAN PLATELET VOLUME 10.8 fL (7.9-10.8); MONOCYTES # (AUTO) 0.2 10^3/uL (0.0-1.0); MONOCYTES % (AUTO) 5.7 %; NEUTROPHILS # (AUTO) 2.2 10^3/uL (1.5-6.6); NEUTROPHILS % (AUTO) 75.3 %; PLT - PLATELET COUNT 261 10^3/uL (130-450); RED BLOOD COUNT 4.35 10^6/uL (4.20-5.40); RED CELL DISTRIBUTION WIDTH 15.9 % (12.0-15.0)
[2020-01-25 09:48] LABS: ALBUMIN/GLOBULIN RATIO 1.7 (1.0-2.2); ALKALINE PHOSPHATASE 36 IU/L (42-121); ALT ALANINE AMINOTRANSFERASE 31 IU/L (10-60); AST ASPARTATE AMINOTRANSFERASE 38 IU/L (10-42); BILIRUBIN,TOTAL 0.6 mg/dL (0.2-1.0); BUN - BLOOD UREA NITROGEN 11 mg/dL (6-20); CALCIUM 7.9 mg/dL (8.5-10.3); CARBON DIOXIDE - CO2 23 mmol/L (21-32); CHLORIDE 109 mmol/L (101-111); CREATININE 0.6 mg/dL (0.4-1.0); GLUCOSE 115 mg/dL (70-100); LIPASE 23 U/L (22-51); SODIUM 143 mmol/L (135-145); TOTAL PROTEIN 6.4 g/dL (6.7-8.2)
[2020-01-25 09:55] LABS: SALICYLATE < 6.0 mg/dL
[2020-01-25 09:56] LABS: ACETAMINOPHEN 157 ug/mL (10-30)
[2020-01-25 09:57] LABS: PLATELET ESTIMATE, MANUAL NORMAL (130-450,000) (NORMAL); PLATELET MORPHOLOGY NORMAL APPEARANCE (NORMAL)
[2020-01-25] MEDS ORDERED: DEXTROSE 5% IV STA (10:03)
[2020-01-25] MEDS ORDERED: ACETYLCYSTEINE IV STA (10:03)
[2020-01-25] MEDS ORDERED: PROMETHAZINE INJ 6.25 MG in SODIUM CHLORIDE 0.9% 50 ML IV STA (10:22)
[2020-01-25] MEDS ORDERED: ONDANSETRON 4 MG/2 ML VIAL IVP PRN (10:48)
[2020-01-25] MEDS ORDERED: SODIUM CHLORIDE FLUSH 0.9% 10 ML SYRINGE IVP PRN (10:48)
[2020-01-25] MEDS ORDERED: DEXTROSE 5%-0.9% NACL 1,000 ML IV SCH (11:00)
[2020-01-25 11:02] LABS: MUDS CUTOFF CONCENTRATIONS CUTOFF CONC BELOW:
[2020-01-25 11:08] LABS: BILIRUBIN,URINE NEGATIVE (NEGATIVE); CLARITY,URINE CLEAR (CLEAR); GLUCOSE, URINE (UA) NEGATIVE (NEGATIVE); KETONES,URINE (UA) NEGATIVE (NEGATIVE); LEUKOCYTE ESTERASE, URINE NEGATIVE (NEGATIVE); NITRITE,URINE NEGATIVE (NEGATIVE); OCCULT BLOOD,URINE NEGATIVE (NEGATIVE); PH,URINE 6.5 PH (5.0-7.5); PROTEIN,URINE NEGATIVE (NEGATIVE); UROBILINOGEN,URINE 0.2 (NORMAL) E.U./dL (NORMAL)
[2020-01-25 11:17] LABS: AMPHETAMINE SCREEN,URINE POSITIVE (NEGATIVE); BENZODIAZEPINES SCREEN, URINE NEGATIVE (NEGATIVE); COCAINE SCREEN URINE NEGATIVE (NEGATIVE); METHADONE SCREEN, URINE NEGATIVE (NEGATIVE); METHAMPHETAMINES SCREEN, URINE NEGATIVE (NEGATIVE); OPIATE SCREEN, URINE NEGATIVE (NEGATIVE); TRICYCLIC ANTIDEPRESSANT,URINE NEGATIVE (NEGATIVE)
[2020-01-25 11:18] LABS: OXYCODONE SCREEN, URINE NEGATIVE (NEGATIVE); PROPOXYPHENE SCREEN, URINE NEGATIVE (NEGATIVE)
[2020-01-25] MEDS ORDERED: DEXTROSE 5% IV ONE ×2 (12:00→16:00)
[2020-01-25] MEDS ORDERED: ACETYLCYSTEINE IV ONE ×2 (12:00→16:00)
--- NOTE | 2020-01-25 12:12 | PHARMACY PROGRESS NOTE ---
- Best Possible Medication History Admit Date and Time: 01/25/20 1042 Processed by: Pharmacy Medication History completed: Yes Patient Interview: Pt unable to participate Secondary Source(s): Insurance records (PATIENT UNABLE TO BE INTERVIEWED AT THIS TIME. MEDICATION RECONCILIATION DONE BASED ON INSURANCE ONLY) As the person ultimately responsible for medication therapy, providers are able to order a medication from an existing home medication list in [facility] via the "Reconcile Routine" prior to Confirmation of that medication by software support technician. Such practice is discouraged except when the physician, in their clinical judgment, deems that a medical need exists for a medication without regard to previous use.
[2020-01-25 14:03] LABS: HCG UR QUAL NEGATIVE
[2020-01-25] MEDS: DEXTROSE 5%-0.9% NACL 1,000 ML IV SCH ×2 (14:30→21:43)
[2020-01-25 18:15] LABS: INR 1.3 (0.8-1.2); PT - PROTHROMBIN TIME 14.7 secs (9.9-12.6)
[2020-01-25 18:22] LABS: ALBUMIN 4.1 g/dL (3.2-5.5); BILIRUBIN,DIRECT 0.2 mg/dL (0.1-0.5); BILIRUBIN,TOTAL 0.9 mg/dL (0.2-1.0); TOTAL PROTEIN 6.6 g/dL (6.7-8.2)
[2020-01-25] MEDS: SODIUM CHLORIDE FLUSH 0.9% 10 ML SYRINGE IVP SCH (18:23)
--- NOTE | 2020-01-25 19:33 | HISTORY & PHYSICAL EXAMINATION ---
DATE OF SERVICE: 01/25/2020 Physician: Estefany Ma MD HISTORY OF PRESENT ILLNESS: This is a 45-year-old white female with a history of ADHD, anxiety and d epression, PTSD, obsessive-compulsive disorder, and eating disorder. She has had a history of prior suicide attempt with using a shotgun. The patient has not been hospitalized here in the past. Today , she was brought in by ambulance and was somnolent, but could give some of the history. She told e ER provider that she was feeling depressed and had some alcohol and then took an unknown quantity o f Tylenol PM and NyQuil. She says this was before bedtime. It was already dark outside. She does n ot remember what time last evening. There was a friend who checked on her this morning with no respo nse and the friend called the EMS. The patient currently is living alone. Her is in care home. In the emergency room, she had labs done that showed a Tylenol level of 150, and she was started on I V Mucomyst. She has been admitted to the ICU for suicide attempt, intentional Tylenol overdose and a ltered mental status. PAST MEDICAL HISTORY: Multiple psychiatric diagnoses including anxiety, depression, PTSD, ADHD, ralf c attacks, prior suicide attempt. ALLERGIES: PENICILLIN. MEDICATIONS: 1. Adderall 60 mg daily. 2. Ibuprofen p.r.n. 3. Multivitamin daily. SOCIAL HISTORY: The patient is a nonsmoker, who never smoked, drinks alcohol, but no history of subs tance abuse with this or other substances. REVIEW OF SYSTEMS: This was done from chart review and asking the patient for several questions; how ever, she was somnolent and fell asleep, and unable to provide detailed answers. The pertinent posit babita are listed above, the rest are negative. FAMILY HISTORY: No inherited diseases. PHYSICAL EXAMINATION GENERAL: Middle-aged white female. She is somnolent, appears in no distress. When she awakens, she is retching or vomiting. VITAL SIGNS: Blood pressure 146/85, heart rate 70-80 in sinus rhythm, afebrile, room air saturation 100%. HEENT: Unremarkable. She has dry oral mucosa and fairly good dentition. NECK: Shows no JVD at a 30-degree upright angle. CHEST: Clear. HEART: Normal heart sounds with no murmurs. ABDOMEN: Soft, nontender. EXTREMITIES: No clubbing, cyanosis or edema. NEUROLOGIC: Currently obtunded, awakens and is able to answer with normal speech, falls asleep easil y. LABORATORY DATA: Sodium 143, potassium 3.5, BUN 11, creatinine 0.6, calcium 7.9, with an albumin of 4, magnesium 1.9. Liver tests are all normal except alkaline phosphatase of 36. Lipase normal at 23 . TSH normal at 1.63. White blood count 3, hemoglobin 9.6, with MCV very low at 68 and RDW low at 1 5, platelet count normal at 261. INR is 1.3. Urinalysis showed negative hCG, specific gravity of 1. 02, negative nitrites, negative leukocyte esterase. Her nasal screen PCR for MRSA is negative. Her urine toxicology showed positive amphetamine, but negative methamphetamine. Serum had an alcohol leve l present of 73.9 and no salicylates. Her serum acetaminophen level was 157. EKG: Normal sinus rhythm, prolonged QT interval, borderline at 551 milliseconds. Otherwise, unremar kable EKG. IMPRESSION/DIAGNOSES 1. Suicide attempt by drug ingestion. 2. Intentional acetaminophen overdose. 3. Lethargy. 4. Anemia, microcytic. 5. Leukopenia. 6. Depression with anxiety. 7. Adult attention deficit hyperactivity disorder. 8. History of suicide attempt. PLAN: Admit the patient to the ICU on telemetry. Because of this suicide attempt, start one-to-one observation. Continue with the Mucomyst management aggressively with finishing the load of 150 mg/kg over 1 hour that was started in the ER and then proceed to a 50 mg/kg dose over 4 hours IV, and then a 100 mg/kg dose over 16 hours IV. Contact Poison Control for further management. Follow her LFTs, INR, serum acetaminophen level every 8 to 12 hours. Follow her CBC daily. Begin IV fluids because of her obtundation, but order a diet if she would tolerate this without vomiting. Order antiemetics. Avoid any sedatives. Adderall will be on hold for now. A mental health evaluation by social work will be requested when she is medically cleared. DEEP VENOUS THROMBOSIS PROPHYLAXIS: SCDs. CODE STATUS: FULL CODE. ATTESTATION: The patient is expected to be discharged or transferred to another facility within 96 h ours: Yes. cc: Isabela Samuels, TD: 01/25/2020 19:00
[2020-01-26] MEDS: SODIUM CHLORIDE FLUSH 0.9% 10 ML SYRINGE IVP SCH ×3 (00:21→17:33)
[2020-01-26] MEDS: DEXTROSE 5%-0.9% NACL 1,000 ML IV SCH ×2 (05:14→13:00)
[2020-01-26 05:34] LABS: BASOPHILS % (AUTO) 0.6 %; EOSINOPHILS % (AUTO) 0.1 %; HGB - HEMOGLOBIN 9.5 g/dL (12.0-16.0); LYMPHOCYTES # (AUTO) 2.2 10^3/uL (1.5-3.5); LYMPHOCYTES % (AUTO) 30.9 %; MEAN CORPUSCULAR HEMOGLOBIN 21.5 pg (27.0-31.0); MEAN CORPUSCULAR VOLUME 67.3 fL (81.0-99.0); MEAN PLATELET VOLUME 10.8 fL (7.9-10.8); MONOCYTES # (AUTO) 0.4 10^3/uL (0.0-1.0); MONOCYTES % (AUTO) 6.3 %; NEUTROPHILS # (AUTO) 4.3 10^3/uL (1.5-6.6); NEUTROPHILS % (AUTO) 61.8 %; PLT - PLATELET COUNT 294 10^3/uL (130-450); RED BLOOD COUNT 4.41 10^6/uL (4.20-5.40); RED CELL DISTRIBUTION WIDTH 15.8 % (12.0-15.0)
[2020-01-26 05:35] LABS: INR 1.3 (0.8-1.2); PT - PROTHROMBIN TIME 14.8 secs (9.9-12.6)
[2020-01-26 05:45] LABS: ACETAMINOPHEN < 10 ug/mL (10-30); ALBUMIN 3.8 g/dL (3.2-5.5); ALBUMIN/GLOBULIN RATIO 1.7 (1.0-2.2); ALKALINE PHOSPHATASE 35 IU/L (42-121); ALT ALANINE AMINOTRANSFERASE 25 IU/L (10-60); AST ASPARTATE AMINOTRANSFERASE 18 IU/L (10-42); BILIRUBIN,TOTAL 1.4 mg/dL (0.2-1.0); BUN - BLOOD UREA NITROGEN < 5 mg/dL (6-20); CARBON DIOXIDE - CO2 26 mmol/L (21-32); CHLORIDE 106 mmol/L (101-111); CREATININE 0.6 mg/dL (0.4-1.0); GLUCOSE 119 mg/dL (70-100); MAGNESIUM 1.6 mg/dL (1.7-2.8); PHOSPHORUS 2.2 mg/dL (2.5-4.6); SODIUM 138 mmol/L (135-145)
[2020-01-26 06:10] LABS: PLATELET ESTIMATE, MANUAL NORMAL (130-450,000) (NORMAL)
[2020-01-26 06:14] LABS: CALCIUM 8.4 mg/dL (8.5-10.3)
[2020-01-26] MEDS: POTASSIUM CHLOR 10 MEQ/100 ML 10 MEQ/100 ML BAG IV SCH ×8 (06:15→15:50)
[2020-01-26] MEDS ORDERED: PANTOPRAZOLE 40 MG VIAL IVP SCH (07:00)
[2020-01-26] MEDS ORDERED: MAGNESIUM SULFATE 2 GRAM 2 GM/50 ML BAG IV ONE (07:00)
[2020-01-26] MEDS ORDERED: POTASSIUM PHOSPHATE 15 MMOL in SODIUM CHLORIDE 0.9% 250 ML IV ONE (08:00)
[2020-01-26 14:48] LABS: MAGNESIUM 2.1 mg/dL (1.7-2.8); PHOSPHORUS 2.5 mg/dL (2.5-4.6)
--- NOTE | 2020-01-26 16:08 | Discharge Plan ---
Discharge Plan Problem Reviewed?: Yes Disposition: 65 Psych Hosp/Unit DC/Xfer Condition: Stable No Smoking: If you smoke, Please STOP! Call for help.
--- NOTE | 2020-01-26 16:09 | DISCHARGE SUMMARY ---
Discharge Summary Admit Date: 01/25/20 Discharge Date: 01/26/20 Discharging Provider: Dr Estefany Ma Primary Care Provider: ARCELIA Mcknight Code Status: Attempt Resuscitation Condition at Discharge: Stable Discharge Disposition: 65 Psych Hosp/Unit DC/Xfer Discharge Facility Name: [facility] History of Present Illness: This is a 45-year-old white female with history of adult ADHD, Anxiety and depression, PTSD, obsessive-compulsive and eating disorder. She has a history of prior suicide attempt using a shotgun. She has never been hospitalized here before. Today she was brought in by ambulance when a friend called her and there was no answer and an ambulance was summoned. The patient was somnolent in the ER but was able to awaken and speak and give a history. She told the ER provider that she was feeling depressed last night and drank some alcohol and then took an unknown quantity of Tylenol PM and NyQuil. The exact time of ingestion is not known. The ER evaluation showed stable vital signs, no focal neurologic findings. The lab exam showed neg urine HCG, WBC 3, normal elec trolytes, normal BUN/creat, Mg 1.9, normal liver tests, normal INR and a serum acetaminophen level of 157. Poison control was contacted. The patient is being admitted to the ICU with one-to-one monitoring because of the suicide attempt and to be on IV Mucomyst per protocol (1 hour loading dose then 4 hours at 50 mg/kg then 16 hours at 100 mg/kg). She started to vomit after the loading dose in the ER, therefore iv fluids and anti-emetics will be ordered. We will follow her LFTs, INR and serum acetaminophen level every 8-12 hours. After medical stabilization, a Social Work consult for mental health eval will be requested. - HOSPITAL COURSE Hospital Course: 1) Suicide attempt by drug ingestion. After she was medically stabilized, the next day, she was seen by Social Work and the patient wanted continued psych management. She was accepted in transfer by [facility] and was transferred there in stable condition by [facility] ambulance, the following evening. 2) Intentional acetaminophen overdose. Patient had Mucomyst treatment with a 1 hour loading dose then 4-hour than 16- hour management, per protocol. Her acetaminophen level fell rapidly, from 157>> 56>> less than 10. She had no elevation in liver function tests or abnormal INR. 3) Lethargy. This was presumed to be from the ingestion of the NyQuil and the Benadryl po rtion of Tylenol PM. By the following morning, she was awake and able to converse, waqs oriented x3, able to take a diet and ambulate. 4) Anemia, microcytic. The admission Hgb was 9.6, with MCV of 68. There were no signs or symptoms of blood loss while here. The hemoglobin the following day was 9.5. This needs outpatient work-up by her PCP. 5) Leukopenia. At admission, the WBC was 3. The next morning, her CBC showed a normal WBC of 7. 6) Depression with anxiety. She is on no current antidepressant or anxiolytic, according to her reconciled medication list. 7) Adult ADHD. She was on Adderall at home, which should be continued. 8) Hypokalemia Her electrolytes were normal at admission. The following morning her potassium was low at 2.5. She got iv replacement and in the afternoon the serum potassium was 4. 9) Hypophosphatemia This was not obtained at admission. The following morning her serum phosphate level was 2.2. She received replacement and a repeat phosphate level in the afternoon was 2.5. 10) Hypomagnesemia The admission magnesium level was borderline-low normal at 1.9. The following morning it was 1.6. She received replacement and in the afternoon the magnesium level was normal at 2.1. - ALLERGIES Allergies/Adverse Reactions: Allergies Allergy/AdvReac Type Severity Reaction Status Date / Time Penicillins Allergy Intermediate Rash Verified 01/25/20 09:12 - MEDICATIONS Home Medications: Ambulatory Orders Medication Instructions Recorded Confirmed Dextroamphetamine/Amphetamine 40 mg PO DAILY 11/11/12 01/25/20 [Adderall 20 mg Tablet] Dextroamphetamine/Amphetamine 20 mg PO .@ NOON 01/25/20 01/25/20 [Dextroamp-Amphetamin 20 mg Tab] - PHYSICAL EXAM AT DISCHARGE General Appearance: positive: No acute distress, Alert Eyes Bilateral: positive: Normal inspection, EOMI ENT: positive: ENT inspection nml, No signs of dehydration Neck: positive: Nml inspection, No JVD Respiratory: positive: No respiratory distress, Breath sounds nml Cardiovascular: positive: Regular rate & rhythm, No murmur Abdomen: positive: Non-tender, Nml bowel sounds, No distention Skin: positive: Pallor Extremities: positive: Non-tender, No pedal edema Neurologic/Psychiatric: positive: Oriented x3, Other (Non-focal, still sleepy.) - LABS Result Diagrams: 01/26/20 05:25 01/26/20 14:25 - FOLLOW UP Follow Up: See PCP after hospitalization at [facility] [place]. - TIME SPENT Time Spent in Discharge (Minutes): 60
[2020-01-26 16:57] VITALS: BP 116/79
== END 2020-01-26 19:00 | DRG 918 ==
LOC: EDUNIT# → ED 08:46 → EEVIPCON 10:42 → ICU 10:42
PROVIDERS: ADMIT Internal Medicine; ATTEND Internal Medicine
DX: T39.1X2A Poisoning by 4-Aminophenol derivatives, intentional self-harm, initial encounter (principal); R53.83 Other fatigue; Y92.009 Unspecified place in unspecified non-institutional (private) residence as the place of occurrence of the external cause; D50.9 Iron deficiency anemia, unspecified; F41.8 Other specified anxiety disorders; F90.9 Attention-deficit hyperactivity disorder, unspecified type; E87.6 Hypokalemia; E83.39 Other disorders of phosphorus metabolism; E83.42 Hypomagnesemia; F43.10 Post-traumatic stress disorder, unspecified; F42.9 Obsessive-compulsive disorder, unspecified; F50.9 Eating disorder, unspecified; Z68.22 Body mass index [BMI] 22.0-22.9, adult; Z91.5 Personal history of self-harm; Z72.89 Other problems related to lifestyle
CPT/HCPCS: 36415; 80053; 80076; 80306; 80307; 80320; 80329; 81003; 81025; 82140; 83690; 83735; 84100; 84132; 84443; 85025; 85610; 87150; 93005; 96360; 99284; 99285; J0132; J3490; J7040; 81001; 87086

== ENCOUNTER 2020-02-14 23:26 | Outpatient (CLI) | payer OTHER | END 2020-02-14 23:27 | disposition EMS.NT | LOC: EMS 23:26 | PROVIDERS: ATTEND Surgery | DX: F41.9 Anxiety disorder, unspecified (principal) ==

== ENCOUNTER 2020-05-15 20:19 | Emergency (ER) | payer OTHER ==
--- NOTE | 2020-05-15 20:23 | ED Physician Documentation ---
PD HPI MHE - Stated complaint Stated Complaint: INGESTION/MHE - History obtained from History obtained from: Patient - History of Present Illness Primary symptom: Suicidal ideation, Self harm - OD (she states she was feeling more upset about the holiday and other issues, and got upset this evening and took "small handful" of Tylenol. She says she vomited soon after with pills came up. 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 LANGUAGE LECTURER: section HEENT: Tonsil/Adenoidectomy - Present Medications Home Medications: Ambulatory Orders Medication Instructions Recorded Confirmed Dextroamphetamine/Amphetamine 40 mg PO DAILY 11/11/12 01/25/20 [Adderall 20 mg Tablet] Dextroamphetamine/Amphetamine 20 mg PO .@ NOON 01/25/20 01/25/20 [Dextroamp-Amphetamin 20 mg Tab] - Allergies Allergies/Adverse Reactions: Allergies Allergy/AdvReac Type Severity Reaction Status Date / Time Penicillins Allergy Intermediate Rash Verified 01/25/20 09:12 - Social History Does the pt smoke?: No Smoking Status: Never smoker Does the pt drink ETOH?: Yes Does the pt have substance abuse?: No - Immunizations Immunizations are current?: No - POLST Patient has POLST: No PD ED PE NORMAL - Vitals Vital signs reviewed: Yes - General General: Alert and oriented X 3, No acute distress, Well developed/nourished, Other (she is talkative and open to sharing the events/circumstances. ) - HEENT HEENT: Pharynx benign - Neck Neck: Supple, no meningeal sign, No adenopathy - Cardiac Cardiac: RRR, No murmur - Respiratory Respiratory: Clear bilaterally - Abdomen Abdomen: Soft, Non tender - Derm Derm: Normal color, Warm and dry - Neuro Neuro: Alert and oriented X 3, No motor deficit, Normal speech Eye Opening: Spontaneous Motor: Obeys Commands Verbal: Oriented GCS Score: 15 - Psych Psych: Normal mood Results - Vitals Vitals: Vital Signs - 24 hr 05/15/20 05/15/20 05/15/20 20:20 20:41 22:13 Temperature 35 C L 36.9 C 36.6 C Heart Rate 68 87 Respiratory 18 12 Rate Blood Pressure 112/77 121/92 H O2 Saturation 100 100 Oxygen O2 Source Room air - Labs Labs: Laboratory Tests 05/15/20 05/15/20 05/15/20 20:42 20:42 20:42 WBC 6.7 RBC 5.56 H Hgb 11.4 L Hct 36.8 L MCV 66.2 L MCH 20.5 L MCHC 31.0 L RDW 14.3 Plt Count 280 MPV 9.9 Neut # (Auto) 4.5 Lymph # (Auto) 1.6 Russell # (Auto) 0.4 Eos # (Auto) 0.0 Baso # (Auto) 0.0 Absolute Nucleated RBC 0.00 Nucleated RBC % 0.0 Manual Slide Review Indicated Platelet Estimate NORMAL (130-450,000) Platelet Morphology NORMAL APPEARANCE RBC Morph Micro Appear 2+ MICROCYTOSIS Sodium 139 Potassium 3.7 Chloride 100 L Carbon Dioxide 28 Anion Gap 11.0 BUN 11 Creatinine 0.6 Estimated GFR (MDRD) 108 Glucose 82 Calcium 9.0 Total Bilirubin 0.7 AST 14 ALT 17 Alkaline Phosphatase 45 Total Protein 6.6 L Albumin 3.9 Globulin 2.7 Albumin/Globulin Ratio 1.4 Lipase 38 TSH 0.93 Urine Color Urine Clarity Urine pH Ur Specific [place] Urine Protein Urine Glucose (UA) Urine Ketones Urine Occult Blood Urine Nitrite Urine Bilirubin Urine Urobilinogen Ur Leukocyte Esterase Ur Microscopic Review Urine Culture Comments Salicylates < 6.0 Urine Opiates Screen Ur Oxycodone Screen Urine Methadone Screen Ur Propoxyphene Screen Acetaminophen < 10 L Ur Barbiturates Screen Ur Tricyclics Screen Ur Phencyclidine Scrn Ur Amphetamine Screen U Methamphetamines Scrn U Benzodiazepines Scrn Urine Cocaine Screen U Cannabinoids Screen Ethyl Alcohol < 5.0 05/15/20 05/15/20 20:59 21:45 WBC RBC Hgb Hct MCV MCH MCHC RDW Plt Count MPV Neut # (Auto) Lymph # (Auto) Russell # (Auto) Eos # (Auto) Baso # (Auto) Absolute Nucleated RBC Nucleated RBC % Manual Slide Review Platelet Estimate Platelet Morphology RBC Morph Micro Appear Sodium Potassium Chloride Carbon Dioxide Anion Gap BUN Creatinine Estimated GFR (MDRD) Glucose Calcium Total Bilirubin AST ALT Alkaline Phosphatase Total Protein Albumin Globulin Albumin/Globulin Ratio Lipase TSH Urine Color YELLOW Urine Clarity CLEAR Urine pH 7.0 Ur Specific [place] 1.020 Urine Protein NEGATIVE Urine Glucose (UA) NEGATIVE Urine Ketones NEGATIVE Urine Occult Blood NEGATIVE Urine Nitrite NEGATIVE Urine Bilirubin NEGATIVE Urine Urobilinogen 0.2 (NORMAL) Ur Leukocyte Esterase NEGATIVE Ur Microscopic Review NOT INDICATED Urine Culture Comments NOT INDICATED Salicylates Urine Opiates Screen NEGATIVE Ur Oxycodone Screen NEGATIVE Urine Methadone Screen NEGATIVE Ur Propoxyphene Screen NEGATIVE Acetaminophen 12 Ur Barbiturates Screen NEGATIVE Ur Tricyclics Screen NEGATIVE Ur Phencyclidine Scrn NEGATIVE Ur Amphetamine Screen POSITIVE H U Methamphetamines Scrn NEGATIVE U Benzodiazepines Scrn NEGATIVE Urine Cocaine Screen NEGATIVE U Cannabinoids Screen NEGATIVE Ethyl Alcohol PD MEDICAL DECISION MAKING - ED course Complexity details: reviewed results (initial tylenol level was zero, but not at the 4 hour macarena. The repeat level was only 12 and was at about 3 3/4 hours after ingestion. She did not have harmful ingestion amount. ), considered differential (felt more depressed and upset earlier and took extra doses of Tylenol. She vomited soon after. She told her son about it when he got home and he brought her here for eval. 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 She denies continued suicidal ideation right now. ), d/w patient ED course: She states not feeling desire for self-harm anymore. She will call her counselor tomorrow. She verbally contracts to stay safe or call Crisis Line if needed. Departure - Departure Disposition: Home, Self Care Clinical Impression: Depression, reactive Overdose by acetaminophen Qualifiers: Encounter type: initial encounter Injury intent: undetermined intent Qualified Code(s): T39.1X4A - Poisoning by 4-Aminophenol derivatives, undetermined, initial encounter Condition: Stable Record reviewed to determine appropriate education?: Yes Follow-Up: ELÍAS KELLY ND [Primary Care Provider] - Comments: Your acetaminophen level is minimal on your blood tests signifying a nontoxic degree of ingestion. Stay well-hydrated. Follow-up with your counselor tomorrow. Do not take excessive medicines. No alcohol use. Return to the ER or call the crisis line if you are feeling stressed or have any thoughts of wanting to hurt yourself. Discharge Date/Time: 05/15/20 22:22
[2020-05-15] MEDS ORDERED: ONDANSETRON ODT 4 MG TABLET TL STA (20:36)
[2020-05-15] MEDS ORDERED: MAG HYDROX/AL HYDROX/SIMETH 30 ML UDC PO STA (20:36)
[2020-05-15 20:51] LABS: BASOPHILS % (AUTO) 0.6 %; EOSINOPHILS % (AUTO) 0.5 %; HGB - HEMOGLOBIN 11.4 g/dL (12.0-16.0); LYMPHOCYTES # (AUTO) 1.6 10^3/uL (1.5-3.5); LYMPHOCYTES % (AUTO) 24.7 %; MEAN CORPUSCULAR HEMOGLOBIN 20.5 pg (27.0-31.0); MEAN CORPUSCULAR VOLUME 66.2 fL (81.0-99.0); MEAN PLATELET VOLUME 9.9 fL (7.9-10.8); MONOCYTES # (AUTO) 0.4 10^3/uL (0.0-1.0); MONOCYTES % (AUTO) 6.5 %; NEUTROPHILS # (AUTO) 4.5 10^3/uL (1.5-6.6); NEUTROPHILS % (AUTO) 67.5 %; PLT - PLATELET COUNT 280 10^3/uL (130-450); RED BLOOD COUNT 5.56 10^6/uL (4.20-5.40); RED CELL DISTRIBUTION WIDTH 14.3 % (12.0-15.0); WHITE BLOOD COUNT 6.7 x10^3/uL (4.8-10.8)
[2020-05-15 21:00] LABS: MUDS CUTOFF CONCENTRATIONS CUTOFF CONC BELOW:
[2020-05-15 21:02] LABS: BILIRUBIN,URINE NEGATIVE (NEGATIVE); GLUCOSE, URINE (UA) NEGATIVE (NEGATIVE); KETONES,URINE (UA) NEGATIVE (NEGATIVE); LEUKOCYTE ESTERASE, URINE NEGATIVE (NEGATIVE); NITRITE,URINE NEGATIVE (NEGATIVE); OCCULT BLOOD,URINE NEGATIVE (NEGATIVE); PROTEIN,URINE NEGATIVE (NEGATIVE); UROBILINOGEN,URINE 0.2 (NORMAL) E.U./dL (NORMAL)
[2020-05-15 21:03] LABS: CLARITY,URINE CLEAR (CLEAR)
[2020-05-15 21:09] LABS: ACETAMINOPHEN < 10 ug/mL (10-30); ALBUMIN 3.9 g/dL (3.2-5.5); ALBUMIN/GLOBULIN RATIO 1.4 (1.0-2.2); ALKALINE PHOSPHATASE 45 IU/L (42-121); ALT ALANINE AMINOTRANSFERASE 17 IU/L (10-60); AST ASPARTATE AMINOTRANSFERASE 14 IU/L (10-42); BILIRUBIN,TOTAL 0.7 mg/dL (0.2-1.0); BUN - BLOOD UREA NITROGEN 11 mg/dL (6-20); CARBON DIOXIDE - CO2 28 mmol/L (21-32); CHLORIDE 100 mmol/L (101-111); CREATININE 0.6 mg/dL (0.4-1.0); GLUCOSE 82 mg/dL (70-100); LIPASE 38 U/L (22-51); SALICYLATE < 6.0 mg/dL; SODIUM 139 mmol/L (135-145); TOTAL PROTEIN 6.6 g/dL (6.7-8.2)
[2020-05-15 21:16] LABS: AMPHETAMINE SCREEN,URINE POSITIVE (NEGATIVE); BENZODIAZEPINES SCREEN, URINE NEGATIVE (NEGATIVE); COCAINE SCREEN URINE NEGATIVE (NEGATIVE); METHADONE SCREEN, URINE NEGATIVE (NEGATIVE); METHAMPHETAMINES SCREEN, URINE NEGATIVE (NEGATIVE); OPIATE SCREEN, URINE NEGATIVE (NEGATIVE); OXYCODONE SCREEN, URINE NEGATIVE (NEGATIVE); PROPOXYPHENE SCREEN, URINE NEGATIVE (NEGATIVE); TRICYCLIC ANTIDEPRESSANT,URINE NEGATIVE (NEGATIVE)
[2020-05-15 21:24] LABS: PLATELET ESTIMATE, MANUAL NORMAL (130-450,000) (NORMAL); PLATELET MORPHOLOGY NORMAL APPEARANCE (NORMAL)
[2020-05-15 22:14] VITALS: BP 121/92
== END 2020-05-15 22:22 | disposition home or self-care (01) ==
LOC: ED 20:19
DX: T39.1X4A Poisoning by 4-Aminophenol derivatives, undetermined, initial encounter (principal); F32.9 Major depressive disorder, single episode, unspecified
CPT/HCPCS: 36415; 80320; 80329; 81003; 83690; 99283; 99284; A9270; Q0162; 80053; 80306; 80307; 81001; 84443; 85025; 87086

== ENCOUNTER 2023-10-21 07:15 | Outpatient (CLI) | payer MEDICAID, BC ==
[2023-10-21 11:50] LABS: BASOPHILS % (AUTO) 0.6 %; EOSINOPHILS % (AUTO) 0.8 %; HCT - HEMATOCRIT 35.5 % (37.0-47.0); HGB - HEMOGLOBIN 10.3 g/dL (12.0-16.0); LYMPHOCYTES # (AUTO) 1.6 10^3/uL (1.5-3.5); LYMPHOCYTES % (AUTO) 33.4 %; MEAN CORPUSCULAR HEMOGLOBIN 17.3 pg (27.0-31.0); MEAN CORPUSCULAR VOLUME 59.6 fL (81.0-99.0); MONOCYTES # (AUTO) 0.5 10^3/uL (0.0-1.0); NEUTROPHILS # (AUTO) 2.7 10^3/uL (1.5-6.6); PLT - PLATELET COUNT 244 10^3/uL (130-450); RED BLOOD COUNT 5.96 10^6/uL (4.20-5.40); RED CELL DISTRIBUTION WIDTH 19.3 % (12.0-15.0); SLIDE REVIEW? Indicated; WHITE BLOOD COUNT 4.9 x10^3/uL (4.8-10.8)
[2023-10-21 12:09] LABS: PLATELET ESTIMATE, MANUAL NORMAL (130-450,000) (NORMAL); PLATELET MORPHOLOGY NORMAL APPEARANCE (NORMAL)
[2023-10-21 12:14] LABS: ALBUMIN 4.2 g/dL (3.2-5.5); ALBUMIN/GLOBULIN RATIO 1.6 (1.0-2.2); ALKALINE PHOSPHATASE 42 IU/L (42-121); ALT ALANINE AMINOTRANSFERASE 13 IU/L (10-60); AST ASPARTATE AMINOTRANSFERASE 15 IU/L (10-42); BILIRUBIN,TOTAL 0.8 mg/dL (0.2-1.0); BUN - BLOOD UREA NITROGEN 18 mg/dL (6-20); CALCIUM 9.5 mg/dL (8.5-10.3); CARBON DIOXIDE - CO2 27 mmol/L (21-32); CHLORIDE 107 mmol/L (101-111); CHOL/HDL RATIO 2.3 (<4.4); CHOLESTEROL 144 mg/dL; CREATININE 0.8 mg/dL (0.6-1.3); GFR - MDRD 77 (>89); GLUCOSE 91 mg/dL (74-104); HDL CHOLESTEROL 63 mg/dL; LDL CHOLESTEROL,CALCULATED 65 mg/dL; POTASSIUM 4.2 mmol/L (3.5-4.5); SODIUM 137 mmol/L (135-145); TOTAL PROTEIN 6.8 g/dL (6.4-8.9); TRIGLYCERIDES 80 mg/dL (48-352); VLDL CHOLESTEROL 16 mg/dL
[2023-10-21 12:27] LABS: THYROID STIMULATING HORMONE 1.44 uIU/mL (0.34-5.60)
== END 2023-10-21 07:16 | disposition home or self-care (01) ==
LOC: LAB.N 07:15
PROVIDERS: ATTEND Physician Assistant
DX: Z13.9 Encounter for screening, unspecified (principal)
CPT/HCPCS: 36415; 80053; 80061; 83721; 84443; 85025

== ENCOUNTER 2023-11-18 10:28 | Outpatient (CLI) | payer BC ==
--- NOTE | 2023-11-19 10:22 | Mammography Report ---
BILATERAL DIGITAL SCREENING MAMMOGRAM 3D/2D: 11/18/2023 CLINICAL: Baseline exam. Baseline exam. No prior exams were available for comparison. Both breasts are heterogeneously dense, which may obscure small masses (category c / 51-75% glandular tissue). No significant masses, calcifications, or other findings are seen in either breast. Multiple oval cir cumscribed masses are seen bilaterally, presumed benign. IMPRESSION: BENIGN There is no mammographic evidence of malignancy. A 1 year screening mammogram is recommended. Multip le oval circumscribed masses are seen bilaterally, presumed benign. Based on the Tyrer Cuzick model (a risk assessment model) the patient's lifetime risk is 14.0% and he r 10 year risk is 3.0%. According to the ACR, ACS, and NCCN guidelines, an annual breast MRI exam bang ng with mammogram is recommended if the patient's lifetime risk is 20% or greater. This exam was interpreted at Station ID: [id number]. NOTE: For mammograms, a report in lay terms will be sent to the patient. Approximately 15% of breast malignancies will not be visualized mammographically. In the management of a palpable breast mass, a negative mammogram must not discourage biopsy of a clinically suspicious lesion. Electronically Signed By: Edwar Razo M.D. lc/:11/18/2023 11:44:33 letter sent: No_Letter ACR BI-RADS Category 2: Benign Finding(s) 3342F PARENCHYMAL PATTERN: (D) - The breast(s) demonstrate(s) heterogeneously dense fibroglandular [place]. BI-RADS CATEGORY: (2) - 2 RECOMMENDATION: (ANNUAL) - Recommend routine annual screening mammography. [id number] 1 year screening LATERALITY: (B)
== END 2023-11-18 10:29 | disposition home or self-care (01) ==
LOC: DI.N 10:28
DX: Z12.31 Encounter for screening mammogram for malignant neoplasm of breast (principal); R92.333 Mammographic heterogeneous density, bilateral breasts